=== PATIENT | male | born 1995 | race Native Hawaiian/Other Pacific Islander ===

== ENCOUNTER 2017-04-30 15:35 | Emergency (ER) | payer OTHER ==
[~2017-04-30] VITALS: Ht 172.7 cm; Wt 83.9 kg
[2017-04-30 16:01] LABS: PLATELET COUNT 310 K/uL (142-355)
[2017-04-30 16:20] LABS: POTASSIUM 3.8 mmol/L (3.6-5.2); SODIUM 139 mmol/L (136-145)
[2017-04-30 17:56] VITALS: BP 118/78; TEMP 98.2
== END 2017-04-30 17:59 ==
LOC: ED 15:35
DX: F12.10 Cannabis abuse, uncomplicated (principal)
CPT/HCPCS: 80053; 80307; 81000; 85027; 93005; 96360; 99284; G0479